=== PATIENT | male | born 1970 | race Caucasian/White ===

== ENCOUNTER → 2025-01-14 14:23 | Outpatient (REF) | payer BC, SELFPAY | LOC: DHSLP 14:23 | PROVIDERS: ATTENDING PHYSICIAN Internal Medicine; FAMILY PHYSICIAN Nurse Practitioner Adult Health | DX: G47.33 Obstructive sleep apnea (adult) (pediatric) (principal); G47.61 Periodic limb movement disorder | CPT/HCPCS: 95810 ==

== ENCOUNTER → 2025-06-17 07:15 | Outpatient (REF) | payer BC, SELFPAY | LOC: RAD 07:15 | PROVIDERS: ATTENDING PHYSICIAN Nurse Practitioner Adult Health | DX: R22.0 Localized swelling, mass and lump, head (principal); K11.20 Sialoadenitis, unspecified | CPT/HCPCS: 76536 ==

== ENCOUNTER → 2025-07-02 08:33 | Outpatient (REF) | payer BC, SELFPAY | LOC: RAD 08:33 | PROVIDERS: ATTENDING PHYSICIAN Nurse Practitioner Adult Health | DX: R22.0 Localized swelling, mass and lump, head (principal) | CPT/HCPCS: 70487; Q9967 ==